=== PATIENT | male | born 1985 | race Caucasian/White ===

== ENCOUNTER 2020-06-22 08:54 | Emergency (ER) | payer OTHER ==
[2020-06-22] MEDS ORDERED: Sodium Chloride 0.9% 1,000 ML IV ONE (09:16)
[2020-06-22] MEDS ORDERED: Morphine 2 MG/ML SYRINGE IVPUSH ONE (09:17)
[2020-06-22] MEDS ORDERED: Ondansetron 4 MG/2 ML SDV IVPUSH ONE (09:17)
[2020-06-22 10:01] LABS: ANION GAP 16.1 mmol/L (5-15); CHLORIDE,CL 100 mmol/L (98-115); SODIUM,NA 136 mmol/L (136-145)
--- NOTE | 2020-06-22 10:02 | EDM.PDOC ---
ED HPI GENERAL MEDICAL PROBLEM - General Chief Complaint: Abdominal Pain Stated Complaint: ABD PAIN Time Seen by Provider: 06/22/20 09:36 Source of Information: Reports: Patient History Limitations: Reports: No Limitations - History of Present Illness INITIAL COMMENTS - FREE TEXT/NARRATIVE: Patient presents emergency room for acute lower abdominal pain which started last at 6:00. The pain started gradual onset becoming more severe last night and early this morning. Denies any vomiting diarrhea constipation. Denies any chest pain or shortness of breath fevers. He became diaphoretic due to the pain last night and then became chilled. Denies any COVID-19 exposures or concerns. Patient has never had abdominal surgery. Patient rates his pain on arrival 8 out of 10 sharp radiating up both sides. No other associating symptoms. He has not taken anything for the pain. If the patient stands up his pain decreases some. Bilateral Middle Anterior Abdominal Pain Score (Numeric/FACES): 8 - Related Data Allergies Allergy/AdvReac Type Severity Reaction Status Date / Time No Known Drug Allergies Allergy Cannot Verified 06/22/20 09:24 Remember ED ROS GENERAL - Review of Systems Review Of Systems: Comprehensive ROS is negative, except as noted in HPI. Constitutional: Denies: Fever, Chills Respiratory: Denies: Shortness of Breath Cardiovascular: Denies: Chest Pain GI/Abdominal: Reports: Abdominal Pain, Nausea. Denies: Black Stool, Bloody Stool, Constipation, Diarrhea, Distension, Hematemesis, Hematochezia, Melena, V omiting ED EXAM, GI/ABD - Physical Exam Exam: See Below Exam Limited By: No Limitations General Appearance: Alert, WD/WN, No Apparent Distress Nose: Normal Inspection, Normal Mucosa Throat/Mouth: Normal Inspection, Normal Oropharynx, No Airway Compromise Head: Atraumatic, Normocephalic, Sinus Tenderness Neck: Normal Inspection, Supple. No: Lymphadenopathy (L), Lymphadenopathy (R) Respiratory/Chest: No Respiratory Distress, Lungs Clear, Normal Breath Sounds Cardiovascular: Normal Peripheral Pulses, Regular Rate, Rhythm GI/Abdominal Exam: Normal Bowel Sounds, No Organomegaly, No Distention (lower abdominal tenderness, positive mcburney's signs, neg rousvig sign. ), Tender (Male) Exam: Other. No: Scrotal Swelling, Scrotum Tenderness (L), Scrotum Tenderness (R), Testicular Tenderness (L), Testicular Tenderness (R) Back Exam: Normal Inspection, Full Range of Motion Extremities: Normal Inspection, Normal Range of Motion, Non-Tender Neurological: Alert, Oriented, Normal Cognition Course - Vital Signs Last Recorded V/S: Last Vital Signs Temp 96.8 F L 06/22/20 09:28 Pulse 96 06/22/20 09:28 Resp 18 06/22/20 09:28 BP 146/99 H 06/22/20 09:28 Pulse Ox 99 06/22/20 09:28 - Orders/Labs/Meds Orders: Active Orders 24 hr Category Date Time Status Sodium Chloride 0.9% [Normal Saline] 50 ml Med 06/22/20 10:15 Active IV ASDIRECTED Medication Orders Sodium Chloride (Normal Saline) 50 mls @ 200 mls/hr IV ASDIRECTED REGGIE Last Admin: 06/22/20 10:11 Dose: 200 mls/hr Documented by: RC Labs: Laboratory Tests 06/22/20 06/22/20 06/22/20 Range/Units 09:15 09:33 10:13 WBC 13.80 H (5.00-10.00) 10^3/uL RBC 5.57 (4.50-6.00) 10^6/uL Hgb 16.6 (13.0-17.0) g/dL Hct 47.4 (40.0-52.0) % MCV 85.1 (82.0-92.0) fL MCH 29.8 (27.0-31.0) pg MCHC 35.0 (32.0-36.0) g/dL RDW 11.8 (11.5-14.5) % Plt Count 255 (150-400) 10^3/uL MPV 11.4 H (7.4-10.4) fL Immature Gran % (Auto) 0.1 (0.0-5.0) % Neut % (Auto) 84.4 H (50.0-70.0) % Lymph % (Auto) 9.3 L (20.0-40.0) % [place] % (Auto) 5.8 (2.0-8.0) % Eos % (Auto) 0.2 L (1.0-3.0) % Baso % (Auto) 0.2 (0.0-1.0) % Neut # (Auto) 11.64 H (2.50-7.00) 10^3/uL Lymph # (Auto) 1.29 (1.00-4.00) 10^3/uL [place] # (Auto) 0.80 (0.10-0.80) 10^3/uL Eos # (Auto) 0.03 L (0.10-0.30) 10^3/uL Baso # (Auto) 0.03 (0.00-0.10) 10^3/uL Immature Gran # (Auto) 0.01 (0.00-0.50) 10^3/uL Sodium 136 (136-145) mmol/L Potassium 4.0 (3.3-5.3) mmol/L Chloride 100 (98-115) mmol/L Carbon Dioxide 23.9 (21.0-32.0) mmol/L Anion Gap 16.1 H (5-15) mmol/L BUN 15 (6-25) mg/dL Creatinine 0.80 (0.51-1.17) mg/dL Est Cr Clr Drug Dosing 165.52 mL/min Estimated GFR (MDRD) > 60 mL/min Glucose 115 H (75 - 99) mg/dL Calcium 9.1 (8.7-10.3) mg/dL Total Bilirubin 0.8 (0.2-1.0) mg/dL AST 17 (15-37) U/L ALT 43 (12-78) U/L Alkaline Phosphatase 49 (46-116) IU/L C-Reactive Protein 1.9 H (0.0-0.9) mg/dL Total Protein 7.9 (6.4-8.2) g/dL Albumin 4.70 (3.00-4.80) g/dL Lipase 59 L (73-393) U/L Specimen Type Urincc Urine Color Yellow (YELLOW) Urine Appearance Clear (CLEAR) Urine pH 7.0 (5.0-9.0) Ur Specific [place] 1.010 (1.005-1.030) Urine Protein Negative (NEGATIVE) mg/dL Urine Glucose (UA) Negative (NEGATIVE) mg/dL Urine Ketones Negative (NEGATIVE) mg/dL Urine Occult Blood Negative (NEGATIVE) Urine Nitrite Negative (NEGATIVE) Urine Bilirubin Negative (NEGATIVE) Urine Urobilinogen 0.2 (0.2-1.0) E.U./dL Ur Leukocyte Esterase Negative (NEGATIVE) Urine RBC 0-5 (0-5) /HPF Urine WBC 0-5 (0-5) /HPF Ur Epithelial Cells Occasional /LPF Urine Bacteria Rare (NONE TO FEW) /HPF Meds: Medications Generic Name Dose Route Start Last Admin Trade Name Leah PRN Reason Stop Dose Admin Sodium Chloride 50 mls @ 200 mls/hr 06/22/20 10:15 06/22/20 10:11 Normal Saline IV 200 mls/hr ASDIRECTED REGGIE Administration Discontinued Medications Generic Name Dose Route Start Last Admin Trade Name Freq PRN Reason Stop Dose Admin Ceftriaxone Sodium 2 gm 06/22/20 11:57 Rocephin IVPUSH 06/22/20 11:58 ONETIME ONE Sodium Chloride 1,000 mls @ 999 mls/hr 06/22/20 09:16 06/22/20 09:22 Normal Saline IV 06/22/20 10:16 999 mls/hr .BOLUS ONE Administration Iopamidol 100 ml 06/22/20 10:05 06/22/20 09:55 Isovue-370 (76%) IV 06/22/20 10:06 100 ml ONETIME ONE Administration Morphine Sulfate 2 mg 06/22/20 09:17 Morphine IVPUSH 06/22/20 09:18 ONETIME ONE Morphine Sulfate 4 mg 06/22/20 12:00 Morphine IVPUSH 06/22/20 12:01 ONETIME ONE Ondansetron HCl 4 mg 06/22/20 09:17 Zofran IVPUSH 06/22/20 09:18 ONETIME ONE - Re-Assessments/Exams Free Text/Narrative Re-Assessment/Exam: 06/22/20 10:46 Fluids IV Zofran and morphine were given. After the morphine the patient felt pain was 0 out of 10. Patient was comfortable after CT scan. Patient resting comfortably in bed after morphine no other concerns. CT is scan results pending. 06/22/20 11:45 Patient reassessed patient comfortable denies any wanting pain medication patient does have sharp right lower quadrant tenderness on palpation. Negative Root sign. Positive McBurney's point ,positive psoas sign, CT report pending, there was a delay in getting the report for some reason therefore still waiting for it. Patient is n.p.o. since 7:30. 06/22/20 12:03 A dose of IV antibiotics was given per surgery repeat pain medication. Patient can be transferred via by private vehicle. Departure - Departure Time of Disposition: 12:02 Disposition: DC/Tfer to [facility] 02 Preliminary Cause of *Q: Cardiac Arrest Condition: Good Clinical Impression: Appendicitis, acute Qualifiers: Acute appendicitis type: unspecified acute appendicitis type Qualified Code(s): K35.80 - Unspecified acute appendicitis - Discharge Information *PRESCRIPTION DRUG MONITORING PROGRAM REVIEWED*: No *COPY OF PRESCRIPTION DRUG MONITORING REPORT IN PATIENT JIMI: No Additional Instructions: Patient will follow up at [facility] Dr. Lara to have surgery for removal of his appendicitis. Patient understands and had nothing to eat or drink before he gets there. Surgery is expecting him to arrive there to have surgery today. Sepsis Event Note (ED) - Evaluation Sepsis Screening Result: No Definite Risk - Focused Exam Vital Signs: Vital Signs Temp Pulse Resp BP Pulse Ox 06/22/20 09:28 96.8 F L 96 18 146/99 H 99 - My Orders Last 24 Hours: My Active Orders 06/22/20 10:15 Sodium Chloride 0.9% [Normal Saline] 50 ml IV ASDIRECTED - Assessment/Plan Last 24 Hours: My Active Orders 06/22/20 10:15 Sodium Chloride 0.9% [Normal Saline] 50 ml IV ASDIRECTED
[2020-06-22] MEDS ORDERED: Iopamidol 755 Mg/ML 100 ML Bottle IV ONE (10:05)
[2020-06-22] MEDS ORDERED: Sodium Chloride 0.9% 50 ML IV SCH (10:15)
--- NOTE | 2020-06-22 11:48 | CT ---
[id number] CT/CT Abdomen Pelvis W IV EXAM: ABDOMEN AND PELVIS CT WITH CONTRAST INDICATION: ABDOMINAL PAIN. COMPARISON: None. DISCUSSION: The appendix is dilated, fluid-filled and has mild surrounding inflammatory changes consistent with acute appendicitis. No abscess, free air free fluid. Scattered diverticula of the colon without evidence of diverticulitis. Small fat-containing umbilical and bilateral lingual hernias. Tiny hypodensities in the right kidney are too small to further characterize but likely represent cysts. Mild fatty infiltration of liver. Mild chronic L5 compression fracture. The pancreas, gallbladder, spleen, adrenal glands, left kidney, and small bowel are normal in appearance. No adenopathy, free air free fluid. IMPRESSION: 1. Acute uncomplicated appendicitis. Raheel Emaunel MD 06/22/20 1146 Thank you for allowing us to participate in the care of your patient.
[2020-06-22] MEDS ORDERED: cefTRIAXone 2 GM Vial IVPUSH ONE (11:57)
[2020-06-22] MEDS ORDERED: Morphine 4 MG/ML VIAL IVPUSH ONE (12:00)
== END 2020-06-22 12:30 ==
LOC: KA.ED 08:54
DX: K35.80 Unspecified acute appendicitis (principal)
CPT/HCPCS: 74177; 80053; 81001; 83690; 85025; 86140; 96374; 96375; 96376; 99285; J0696; J2270; J2405; J7030; Q9967; 99283

== ENCOUNTER 2020-07-09 06:22 | Emergency (ER) | payer OTHER ==
--- NOTE | 2020-07-09 06:33 | EDM.PDOC ---
ED HPI GENERAL MEDICAL PROBLEM - General Chief Complaint: Abdominal Pain Stated Complaint: abdominal pain Time Seen by Provider: 07/09/20 06:33 Source of Information: Reports: Patient History Limitations: Reports: No Limitations - History of Present Illness INITIAL COMMENTS - FREE TEXT/NARRATIVE: Calin, 34-year-old male, underwent emergent appendectomy on 23 June laparoscopically. There was no sequela at that time as his appendix had not ruptured and he was discharged home postoperatively doing well. He was at his desk on the when he sneezed causing pain to the left lower quadrant laterally and with continued pain sought postsurgical evaluation. They felt that he may have pulled internal sutures, which was causing the pain. He then started to get some improvement but again on the experienced increasing discomfort and bloated feeling which has persisted. He states now that the past 2 nights he has had difficulty sleeping secondary of the discomfort. Painful to roll over in bed, or lift his leg getting out of bed, always to the left side. Past 2 nights have been disrupted sleep. When standing there is minimal discomfort and he is able to function well. He has not had any fever or chills, bowel movements and urination have been normal. His intake has been nonrestricted for both food and fluid not causing any irritation. He has not had any extraneous activity or lifting. Onset Date: 06/28/20 Duration: Day(s):, Getting Worse Location: Reports: Abdomen Quality: Reports: Burning, Sharp Severity: Moderate Improves with: Reports: Other (Standing) Worsens with: Reports: Other (lying) Context: Reports: Sick Contact Associated Symptoms: Reports: No Other Symptoms Left Abdomen Pain Score (Numeric/FACES): 9 - Related Data Allergies Allergy/AdvReac Type Severity Reaction Status Date / Time No Known Drug Allergies Allergy Cannot Verified 07/09/20 07:16 Remember Home Meds: Home Meds Methylphenidate HCl [Methylphenidate ER] 27 mg PO DAILY PRN 06/22/20 [History] Ketorolac [Toradol] 10 mg PO TID PRN 5 Days #15 tab 07/09/20 [Rx] Past Medical History HEENT History: Reports: None Gastrointestinal History: Reports: Diverticulosis Neurological History: Reports: None - Infectious Disease History Infectious Disease History: Reports: Chicken Pox - Past Surgical History HEENT Surgical History: Reports: Oral Surgery GI Surgical History: Reports: None, Appendectomy Neurological Surgical History: Reports: Lumbar Spine Other Musculoskeletal Surgeries/Procedures:: hip. femur. ankle. L5. lef fracture Social & Family History - Family History Family Medical History: Noncontributory - Caffeine Use Caffeine Use: Reports: Coffee ED ROS GENERAL - Review of Systems Review Of Systems: See Below Constitutional: Reports: No Symptoms HEENT: Reports: No Symptoms Respiratory: Reports: No Symptoms Cardiovascular: Reports: No Symptoms Endocrine: Reports: No Symptoms GI/Abdominal: Reports: Abdominal Pain : Reports: No Symptoms Musculoskeletal: Reports: No Symptoms Skin: Reports: No Symptoms Neurological: Reports: No Symptoms Psychiatric: Reports: No Symptoms Hematologic/Lymphatic: Reports: No Symptoms Immunologic: Reports: No Symptoms ED EXAM, GENERAL - Physical Exam Exam: See Below Free Text/Narrative:: Alert, oriented, in mild distress. HEENT is negative to discharge nor deformity. [place] moist mucous membranes with no evidence of cyanosis nor pallor. Neck is soft supple no lymphadenopathy or rigidity noted. Thorax is clear no wheezes no crackles. Cardiac is S1 is 2 I do not appreciate murmur. Radial pulse correlates with apical heart rate. Abdomen is somewhat distended in its appearance with bowel sounds present. There is tenderness to the left lateral lower quadrant posterior and superior of his laparoscopic incision. No evidence of any dehiscence of his laparoscopic incisions. No flank pain to percussion. No deficit to the lower extremities nor any edema. His discomfort improved significantly when standing, it does not worsen with lateral motion nor rotation. Supine positioning is most prominent with point tenderness in the same region. Course - Vital Signs Last Recorded V/S: Last Vital Signs Temp 35.5 C L 07/09/20 06:33 Pulse 75 07/09/20 07:16 Resp 20 07/09/20 07:16 BP 134/73 07/09/20 07:16 Pulse Ox 97 07/09/20 07:16 - Orders/Labs/Meds Orders: Active Orders 24 hr Category Date Time Status Peripheral IV Care [RC] . DIRECTED Care 07/09/20 06:46 Active Sodium Chloride 0.9% [Normal Saline] 50 ml Med 07/09/20 08:00 Active IV ASDIRECTED Sodium Chloride 0.9% [Saline Flush] Med 07/09/20 06:46 Active 10 ml FLUSH Q8HR PRN Peripheral IV Insertion Adult [OM.PC] Routine Oth 07/09/20 06:46 Ordered Medication Orders Sodium Chloride (Normal Saline) 50 mls @ 200 mls/hr IV ASDIRECTED REGGIE Last Admin: 07/09/20 08:21 Dose: 200 mls/hr Documented by: DEO Sodium Chloride (Saline Flush) 10 ml FLUSH Q8HR PRN PRN Reason: keep vein open Last Admin: 07/09/20 06:56 Dose: 10 ml Documented by: ERIC Labs: Laboratory Tests 07/09/20 07/09/20 07/09/20 Range/Units 06:10 06:10 06:35 WBC 7.15 (5.00-10.00) 10^3/uL RBC 5.23 (4.50-6.00) 10^6/uL Hgb 15.3 (13.0-17.0) g/dL Hct 45.3 (40.0-52.0) % MCV 86.6 (82.0-92.0) fL MCH 29.3 (27.0-31.0) pg MCHC 33.8 (32.0-36.0) g/dL RDW 11.7 (11.5-14.5) % Plt Count 258 (150-400) 10^3/uL MPV 11.2 H (7.4-10.4) fL Immature Gran % (Auto) 0.6 (0.0-5.0) % Neut % (Auto) 66.3 (50.0-70.0) % Lymph % (Auto) 22.7 (20.0-40.0) % [place] % (Auto) 7.6 (2.0-8.0) % Eos % (Auto) 2.4 (1.0-3.0) % Baso % (Auto) 0.4 (0.0-1.0) % Neut # (Auto) 4.75 (2.50-7.00) 10^3/uL Lymph # (Auto) 1.62 (1.00-4.00) 10^3/uL [place] # (Auto) 0.54 (0.10-0.80) 10^3/uL Eos # (Auto) 0.17 (0.10-0.30) 10^3/uL Baso # (Auto) 0.03 (0.00-0.10) 10^3/uL Immature Gran # (Auto) 0.04 (0.00-0.50) 10^3/uL Sodium 138 (136-145) mmol/L Potassium 4.2 (3.3-5.3) mmol/L Chloride 104 (98-115) mmol/L Carbon Dioxide 22.2 (21.0-32.0) mmol/L Anion Gap 16.0 H (5-15) mmol/L BUN 14 (6-25) mg/dL Creatinine 0.74 (0.51-1.17) mg/dL Est Cr Clr Drug Dosing 178.94 mL/min Estimated GFR (MDRD) > 60 mL/min Glucose 99 (75 - 99) mg/dL Calcium 8.7 (8.7-10.3) mg/dL Total Bilirubin 0.4 (0.2-1.0) mg/dL AST 16 (15-37) U/L ALT 46 (12-78) U/L Alkaline Phosphatase 76 (46-116) IU/L Total Protein 7.6 (6.4-8.2) g/dL Albumin 4.35 (3.00-4.80) g/dL Amylase 56 (25-125) U/L Lipase 100 (73-393) U/L Specimen Type Urinblad Urine Color Yellow (YELLOW) Urine Appearance Clear (CLEAR) Urine pH 5.5 (5.0-9.0) Ur Specific [place] >= 1.030 (1.005-1.030) Urine Protein Negative (NEGATIVE) mg/dL Urine Glucose (UA) Negative (NEGATIVE) mg/dL Urine Ketones Negative (NEGATIVE) mg/dL Urine Occult Blood Negative (NEGATIVE) Urine Nitrite Negative (NEGATIVE) Urine Bilirubin Negative (NEGATIVE) Urine Urobilinogen 0.2 (0.2-1.0) E.U./dL Ur Leukocyte Esterase Negative (NEGATIVE) Urine RBC 0-5 (0-5) /HPF Urine WBC 0-5 (0-5) /HPF Ur Epithelial Cells Not seen /LPF Urine Bacteria Rare (NONE TO FEW) /HPF Meds: Medications Generic Name Dose Route Start Last Admin Trade Name Freq PRN Reason Stop Dose Admin Sodium Chloride 50 mls @ 200 mls/hr 07/09/20 08:00 07/09/20 08:21 Normal Saline IV 200 mls/hr ASDIRECTED REGGIE Administration Sodium Chloride 10 ml 07/09/20 06:46 07/09/20 06:56 Saline Flush FLUSH 10 ml Q8HR PRN Administration keep vein open Discontinued Medications Generic Name Dose Route Start Last Admin Trade Name Leah PRN Reason Stop Dose Admin Iopamidol 100 ml 07/09/20 07:56 07/09/20 08:21 Isovue-370 (76%) IV 07/09/20 07:57 100 ml ONETIME ONE Administration Ketorolac Tromethamine 30 mg 07/09/20 06:50 07/09/20 06:53 Toradol IVPUSH 07/09/20 06:51 30 mg ONETIME ONE Administration Ketorolac Tromethamine 30 mg 07/09/20 08:32 07/09/20 08:39 Toradol IM 07/09/20 08:33 30 mg ONETIME ONE Administration Ketorolac Tromethamine 10 mg 07/09/20 08:41 Toradol PO 07/09/20 08:42 ONETIME ONE - Radiology Interpretation CT Results Date: 07/09/20 CT Results Time: 08:18 (No evidence for causation and pain mildly enlarged spleen) - Re-Assessments/Exams Free Text/Narrative Re-Assessment/Exam: 07/09/20 07:24 Toradol provide some improvement as he is able to lay down supine. The pain now is over the incision in the left lower quadrant versus being superior posterior of the incision. Departure - Departure Time of Disposition: 08:44 Disposition: Home, Self-Care 01 Condition: Good Clinical Impression: Postoperative lower abdominal pain - Discharge Information Prescriptions: Ketorolac [Toradol] 10 mg PO TID PRN 5 Days #15 tab PRN Reason: Pain (Moderate 4-6) Instructions: Pain Medicine Instructions, [id number] Referrals: Leann Childress MD [Physician] - Forms: ED Department Discharge Additional Instructions: There is no evidence by laboratory analysis nor CT of the abdomen pelvis for the cause of your discomfort. This is likely a strain of the muscle that occurred surrounding the incision site. We have provided you with ketorolac here in the emergency department. You will be sent home with 1 pill which he can take tonight at bedtime to help with the discomfort so you are able to sleep. There will be a prescription at [facility] for you to obtain on Friday. You may take Tylenol along with the ketorolac, but do not use ibuprofen at the same time. Make sure you drink maintain good fluid intake, predominantly water. Dietary adjustment to promote bowel health. Follow-up as needed with your clinic and/or with a discussion with your surgeon if this does not start showing improvement/resolution by mid week. Sepsis Event Note (ED) - Focused Exam Vital Signs: Vital Signs Temp Pulse Resp BP BP Pulse Ox 07/09/20 07:16 75 20 134/73 97 07/09/20 06:33 35.5 C L 91 16 138/80 97 - Problem List & Annotations (1) Postoperative lower abdominal pain SNOMED Code(s): 98994578 Code(s): G89.18 - OTHER ACUTE POSTPROCEDURAL PAIN; R10.30 - LOWER ABDOMINAL PAIN, UNSPECIFIED Status: Acute Priority: High - Problem List Review Problem List Initiated/Reviewed/Updated: Yes - My Orders Last 24 Hours: My Active Orders 07/09/20 06:46 Peripheral IV Care [RC] . DIRECTED Sodium Chloride 0.9% [Saline Flush] 10 ml FLUSH Q8HR PRN Peripheral IV Insertion Adult [OM.PC] Routine 07/09/20 08:00 Sodium Chloride 0.9% [Normal Saline] 50 ml IV ASDIRECTED - Assessment/Plan Last 24 Hours: My Active Orders 07/09/20 06:46 Peripheral IV Care [RC] . DIRECTED Sodium Chloride 0.9% [Saline Flush] 10 ml FLUSH Q8HR PRN Peripheral IV Insertion Adult [OM.PC] Routine 07/09/20 08:00 Sodium Chloride 0.9% [Normal Saline] 50 ml IV ASDIRECTED Plan: There is no evidence by laboratory analysis nor CT of the abdomen pelvis for the cause of your discomfort. This is likely a strain of the muscle that occurred surrounding the incision site. We have provided you with ketorolac here in the emergency department. You will be sent home with 1 pill which he can take tonight at bedtime to help with the discomfort so you are able to sleep. There will be a prescription at [facility] for you to obtain on Friday. You may take Tylenol along with the ketorolac, but do not use ibuprofen at the same time. Make sure you drink maintain good fluid intake, predominantly water. Follow-up as needed with your clinic and/or with a discussion with your surgeon if this does not start showing improvement/resolution by mid week.
[2020-07-09] MEDS ORDERED: Sodium Chloride 0.9% 10 ML Syringe FLUSH PRN (06:46)
[2020-07-09] MEDS ORDERED: Ketorolac 30 MG/ML SDV IVPUSH ONE (06:50)
[2020-07-09 07:12] LABS: CHLORIDE,CL 104 mmol/L (98-115); SODIUM,NA 138 mmol/L (136-145)
[2020-07-09] MEDS ORDERED: Iopamidol 755 Mg/ML 100 ML Bottle IV ONE (07:56)
[2020-07-09] MEDS ORDERED: Sodium Chloride 0.9% 50 ML IV SCH (08:00)
[2020-07-09] MEDS ORDERED: Ketorolac 30 MG/ML SDV IM ONE (08:32)
--- NOTE | 2020-07-09 08:36 | CT ---
[id number] CT/CT Abdomen Pelvis W IV EXAM: CT Abdomen Pelvis W IV CLINICAL DATA: LEFT LOWER QUADRANT PAIN. COMPARISON STUDY: 06/22/2020. FINDINGS: Lung bases are clear. Liver, gallbladder, pancreas, adrenal glands, and kidneys are unremarkable. The spleen is enlarged measuring up to 15 cm. No bowel obstruction or inflammation. Colonic diverticulosis without evidence of acute diverticulitis. Large amount of retained stool within the colon. The appendix is surgically absent. No lymphadenopathy, free fluid, or pneumoperitoneum. Scattered changes of spondylosis the spine. No fracture or osseous lesion. Stable compression deformity of the L5 vertebral body. IMPRESSION: Large amount of retained stool within the colon. Correlate for constipation. Emilio Rivas DO 07/09/20 0836 Thank you for allowing us to participate in the care of your patient.
[2020-07-09] MEDS ORDERED: Ketorolac 10 MG Tab PO ONE (08:41)
== END 2020-07-09 08:55 | disposition home or self-care (01) ==
LOC: KA.ED 06:22
DX: G89.18 Other acute postprocedural pain (principal); R10.30 Lower abdominal pain, unspecified
CPT/HCPCS: 36415; 74177; 80053; 81001; 82150; 83690; 85025; 96372; 96374; 99284; A9270; J1885 ×2; Q9967

== ENCOUNTER 2022-08-21 01:23 | Emergency (ER) | payer OTHER ==
[2022-08-21] MEDS ORDERED: Sodium Chloride 0.9% 10 ML Syringe FLUSH PRN (01:29)
[2022-08-21 02:03] LABS: ANION GAP 12.9 mmol/L (5-15); CHLORIDE,CL 104 mmol/L (98-107); SODIUM,NA 139 mmol/L (136-145)
[2022-08-21 02:04] LABS: ESTIMATED GFR 117 mL/min (>=60)
[2022-08-21 02:20] LABS: BARBITURATE SCREEN,URINE NEGATIVE (NEGATIVE); BENZODIAZEPINES SCREEN,URINE NEGATIVE (NEGATIVE); TCA SCREEN,URINE NEGATIVE (NEGATIVE); THC SCREEN,URINE 50 NG/ML POSITIVE (NEGATIVE)
[2022-08-21] MEDS: LORazepam 2 MG/ML SDV ONE (02:25)
[2022-08-21] MEDS: Sodium Chloride 0.9% 1,000 ML IV ONE (02:26)
[2022-08-21] MEDS: Sodium Chloride 0.9% 1,000 ML ONE (02:26)
[2022-08-21] MEDS: Ketorolac 30 MG/ML SDV IVPUSH ONE (02:45)
[2022-08-21] MEDS: Ketorolac 30 MG/ML SDV ONE (03:34)
== END 2022-08-21 03:20 | disposition home or self-care (01) ==
LOC: KA.ED 01:23
DX: R55 Syncope and collapse (principal); E66.9 Obesity, unspecified; Z68.32 Body mass index [BMI] 32.0-32.9, adult
CPT/HCPCS: 36415; 70450; 71046; 80053; 80305-QW; 80307; 81001; 83605; 83735; 84484; 85025; 93005; 93010; 96361; 96374; 99284; 99285-25; J1885; J7030